=== PATIENT | female | born 1985 | race Hispanic/Latino ===

== ENCOUNTER 2017-04-05 18:59 | Emergency (ER) | payer SELFPAY ==
[2017-04-05 19:57] VITALS: BP 100/68
== END 2017-04-05 23:31 | disposition left against medical advice (07) ==
LOC: ED 18:59
DX: J02.9 Acute pharyngitis, unspecified (principal); Z53.21 Procedure and treatment not carried out due to patient leaving prior to being seen by health care provider
CPT/HCPCS: 87116; 87430